=== PATIENT | male | born 1980 | race Caucasian/White ===

== ENCOUNTER 2018-01-22 01:58 | Emergency (ER) | payer OTHER ==
[~2018-01-22] VITALS: Ht 172.7 cm; Wt 88.5 kg
[2018-01-22] MEDS ORDERED: CHANTIX1 MG PO (02:11)
[2018-01-22] MEDS ORDERED: HYDROCODONE-AP1 EAC6 PO (02:35)
[2018-01-22] MEDS ORDERED: ACETAMINOPHEN-1 EAC1 PO (02:41)
[2018-01-22] MEDS ORDERED: AMOXICILLIN 50500 MG PO (02:42)
[2018-01-22 03:00] VITALS: BP 111/73
== END 2018-01-22 03:00 | disposition home or self-care (01) ==
LOC: M.ERS 01:58
DX: K08.89 Other specified disorders of teeth and supporting structures (principal)